=== PATIENT | male | born 1930 | race Caucasian/White ===

== ENCOUNTER 2019-05-17 12:17 | Emergency (ER) | payer MEDICARE, BC ==
--- OUTSIDE RECORDS SUMMARY | 2019-05-17 15:18 | XMS REPORT | Summary of Care ---
:1930 Author Organization [facility] Address [address] [address] Care Team Providers Name Role Phone Coco Hoff MD Primary Care Provider Reason for Visit Reason Comments Cough with phlegm continuing Encounter Details Date Type Department Care Team Description 05/10/2019 Office Visit Viviane Hoff, Pneumonia of left lower lobe due to infectious organism (HCC) (Primary Dx); Practice Coco Ash MD Hx pulmonary embolism; [address] Pulmonary nodules; [place] [address] [place] [address] Cough; [phone] ASHD Allergies No Known Allergiesdocumented as of this encounter (statuses as of 05/10/2019) Medications Medication Sig Dispensed Refills Start End Date Status Date Multiple Take 1 Tab by 0 Active Vitamins-Minerals mouth DAILY. (MULTI-DAY PLUS MINERALS) Oral Tab nitroglycerin Place 1 Tab 25 Tab 2 Active (NITROSTAT) 0.4 MG under tongue 8 Sublingual SL Tab EVERY FIVE MINUTES NEEDED for chest pain. sertraline (ZOLOFT) Take 1 Tab by 90 Tab 3 Active 50 MG Oral mouth DAILY. 8 TabIndications: Grief reaction with prolonged bereavement amLodipine (NORVASC) Take 1 Tab by 90 Tab 3 Active 2.5 MG Oral mouth DAILY. 9 TabIndications: Essential hypertension apixaban (ELIQUIS) 5 Take 1 Tab by 180 Tab 3 Active MG Oral mouth TWICE 9 TabIndications: Other DAILY. acute pulmonary embolism without acute cor pulmonale (HCC) atorvastatin Take 1 Tab by 90 Tab 3 Active (LIPITOR) 40 MG Oral mouth DAILY. 9 TabIndications: ASHD (arteriosclerotic heart disease), ST elevation myocardial infarction (STEMI), unspecified artery (HCC) Omeprazole delayed take 1 capsule 90 Cap 3 Active rel cap 20 MG Oral by mouth once 9 CAPSULE DELAYED daily RELEASEIndications: Gastroesophageal reflux disease without esophagitis acetaminophen Take 2 Tabs by 60 Tab 0 Active (TYLENOL) 500 MG Oral mouth EVERY SIX 9 TabIndications: Rib HOURS NEEDED pain on left side (rib pain). metaxalone (SKELAXIN) Take 1 Tab by 30 Tab 0 Active 800 MG Oral mouth THREE 9 TabIndications: Spasm TIMES DAILY of back muscles, Rib NEEDED (back pain on left side spasm). Losartan Potassium Take 1 Tab by 90 Tab 1 Active 100 MG Oral Tab mouth DAILY. 9 Stop Valsartan levofloxacin Take 1 Tab by 7 Tab 0 05/17/20 Active (LEVAQUIN) 750 MG mouth DAILY for 9 19 Oral TabIndications: 7 days. Pneumonia of left lower lobe due to infectious organism (HCC) aspirin (ECOTRIN) 81 Take 1 Tab by 100 Tab 3 Active MG Oral Tab mouth DAILY. 9 ECIndications: ASHD Discontinue (arteriosclerotic Brilinta heart disease) ticagrelor (BRILINTA) Take 1 Tab by 60 Tab 11 05/10/20 Discontinued 90 MG Oral Tab mouth TWICE 8 19 DAILY. zolpidem (AMBIEN) 5 take 1 tablet by 30 Tab 0 05/10/20 Discontinued MG Oral mouth at bedtime 8 19 TabIndications: if needed for Insomnia, unspecified insomnia maximum type daily dose of 1 documented as of this encounter (statuses as of 05/10/2019) Active Problems Problem Noted Date Other forms of angina pectoris 10/15/2018 Chronic obstructive pulmonary disease 10/15/2018 Other pulmonary embolism without acute cor pulmonale 10/15/2018 STEMI (ST elevation myocardial infarction) 11/14/2017 Pulmonary nodules 11/13/2017 Hx pulmonary embolism 11/13/2017 Overview: on Eliquis Benign hypertension 06/21/2017 Insomnia 06/21/2017 RBBB 06/24/2016 Other and unspecified hyperlipidemia 08/10/2007 PPD POSITIVE 08/10/2007 Irritable bowel syndrome 08/30/2006 Diverticulosis of colon (without mention of hemorrhage) 08/30/2006 Unspecified essential hypertension 08/30/2006 Depressive disorder, not elsewhere classified 08/30/2006 Pain in thoracic spine 08/30/2006 Lumbago 08/30/2006 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 Green: LEFT INTERNAL MAMMARY ARTERY TO THE LEFT ANTERIOR DESCENDING AND SEQUENTIAL SAPHENOUS VEIN GRAFT TO THE RIGHT CORONARY ARTERY AND CIRCUMFLEX POSTEROLATERAL ASHD 10/02/2001 Overview: Stress echocardiogram 02/17/06 FINAL IMPRESSION: This study shows low probability for exercise-induced ischemia by echocardiogram at an adequate heart rate and high workload. Inguinal hernia without mention of obstruction or gangrene, unilateral or 10/1996 unspecified, (not specified as recurrent) documented as of this encounter (statuses as of 05/10/2019) Resolved Problems Problem Noted Date Resolved Date Alcohol abuse, unspecified 08/10/2007 04/14/2008 documented as of this encounter (statuses as of 05/10/2019) Immunizations Name Administration Dates Next Due Depo Medrol (40mg) 06/05/2008 Influenza (IM) Preservative Free 08/05/2011, 08/06/2010, 08/13/2009, 07/07/2008 Influenza Vaccine High Dose 07/03/2018, 06/21/2017, 06/29/2016, 08/04/2015, 07/18/2014 Influenza Virus Vaccine - Whole 08/09/2007, 07/25/2006 Influenza Virus Vaccine Pres Free 6-35 07/09/2012 Months PNEUMOCOCCAL POLYSACCHARIDE VACCINE 07/25/2006 Pneumococcal Conjugate(13 Valent) 06/29/2016 documented as of this encounter Social History Tobacco Use Types Packs/Day Years Used Date Former Smoker Cigarettes 0.25 15 Smokeless Tobacco: Never Used Alcohol Use Drinks/Week oz/Week Comments Yes 7 Glasses of wine 28.0 not since 12/07; resumed wine 14 Standard drinks or equivalent nightly with dinner and a night 7 Shots of liquor cap Sex Assigned at Date Recorded Not on file Job Start Date Occupation Industry Not on file Not on file Not on file Travel History Travel Start Travel End No recent travel history available. documented as of this encounter Last Filed Vital Signs Vital Sign Reading Time Taken Comments Blood Pressure 130/70 05/10/2019 10:35 AM EDT Pulse 78 05/10/2019 10:35 AM EDT Temperature 37.4 05/10/2019 10:35 AM EDT C (99.4 F) Respiratory Rate - - Oxygen Saturation 99% 05/10/2019 10:35 AM EDT Inhaled Oxygen Concentration - - Weight 80.3 kg (177 lb) 05/10/2019 10:35 AM EDT Height 175.3 cm (5' 9") 05/10/2019 10:35 AM EDT Body Mass Index 26.14 05/10/2019 10:35 AM EDT documented in this encounter Patient Instructions Patient InstructionsCoco Hoff MD - 05/10/2019 10:20 AM EDTToday I hear a pneumonia of your left lower lobe of your lung. Your chest xray shows your scarred Left lung mass. I am awaiting the radiologist's reading. Stare levofloxacin 750 mg daily: If better after 5 days you can stop, if not complete 7 days. Per cardiology notes, you can stop Brilinta and switch to aspirin. Avoid falls/head injury with the combination of aspirin and Eliquis Levofloxacin (By mouth) Levofloxacin (met-bqw-JYQY-a-aiden) Treats infections. This medicine is a quinolone antibiotic. Brand Name(s):Levmarilynuin, Levaquin Leva-ethan There may be other brand names for this medicine. When This Medicine Should Not Be Used: This medicine is not right for everyone. Do not use if you had an allergic reaction to levofloxacin or similar medicines. How to Use This Medicine: Liquid, Tablet Your doctor will tell you how much medicine to use. Do not use more than directed. Take your medicine at the same time each day. Tablet: Take the tablet with or without food. Liquid: Take the liquid medicine 1 hour before or 2 hours after you eat. Measure the oral liquid medicine with a marked measuring spoon, oral syringe, or medicine cup. Take all of the medicine in your prescription to clear up your infection, even if you feel better after the first few doses. Drink extra fluids so you will urinate more often and help prevent kidney problems. This medicine should come with a Medication Guide. Ask your pharmacist for a copy if you do nothave one. Missed dose: Take a dose as soon as you remember. If it is almost time for your next dose, waituntil then and take a regular dose. Do not take extra medicine to make up for a missed dose. Store the medicine in a closed container at room temperature, away from heat, moisture, and direct light. Drugs and Foods to Avoid: Ask your doctor or pharmacist before using any other medicine, including over- the-counter medicines,vitamins, and herbal products. Some medicines and foods can affect how levofloxacin works. Tell your doctor if you are using any of the following: Theophylline Steroid medicine (such as hydrocortisone, methylprednisolone, prednisone) Blood thinner (such as warfarin) Diabetes medicine NSAID pain or arthritis medicine (such as aspirin, diclofenac, ibuprofen, naproxen, celecoxib) Medicine for heart rhythm problems (such as quinidine, procainamide, amiodarone, sotalol) Some minerals and medicines can keep your body from absorbing this medicine. You may need to take levofloxacin at least 2 hours before or after you take these medicines. These include antacids that contain magnesium or aluminum; magnesium, zinc, or iron supplements; sucralfate; and didanosine. Ask your pharmacist for more information. Warnings While Using This Medicine: Tell your doctor if you are or , or if you have kidney disease, liver disease, diabetes, heart disease, heart rhythm problems ( such as QT prolongation or a slow heartbeat), myasthenia gravis, or a history of seizures, epilepsy, head injury, or stroke. Tell your doctor if youhave ever had tendon or joint problems, including rheumatoid arthritis, or if you have received a transplant. This medicine may cause the following problems: Tendinitis and tendon rupture (may happen after treatment ends) Liver damage Severe diarrhea Nerve damage in the arms or legs Heart rhythm changes Blood sugar level changes This medicine may make you feel dizzy or lightheaded. Do not drive or do anything else that could be dangerous until you know how this medicine affects you. This medicine can cause diarrhea. Call your doctor if the diarrhea becomes severe, does not stop, or is bloody. Do not take any medicine to stop diarrhea until you have talked to your doctor. Diarrhea can occur 2 months or more after you stop taking this medicine. This medicine may make your skin more sensitive to sunlight. Wear sunscreen. Do not use sunlamps or tanning beds. Call your doctor if your symptoms do not improve or if they get worse. Tell any doctor or dentist who treats you that you are using this medicine. This medicine may affect certain medical test results. Keep all medicine out of the reach of children. Never share your medicine with anyone. Possible Side Effects While Using This Medicine: Call your doctor right away if you notice any of these side effects: Allergic reaction: Itching or hives, swelling in your face or hands, swelling or tingling in your mouth or throat, chest tightness, trouble breathing Blistering, peeling, or red skin rash Change in how much or how often you urinate Dark urine or pale stools, nausea, vomiting, loss of appetite, stomach pain , yellow skin or eyes Diarrhea that may contain blood Fainting, dizziness, or lightheadedness Fast, slow, or uneven heartbeat, chest pain Numbness, tingling, or burning pain in your hands, arms, legs, or feet Pain, stiffness, swelling, or bruises around your ankle, leg, shoulder, or other joint Seizures, severe headache, unusual thoughts or behaviors, trouble sleeping , confusion Unusual bleeding, bruising, or weakness If you notice these less serious side effects, talk with your doctor: Mild headache Mild nausea or diarrhea If you notice other side effects that you think are caused by this medicine, tell your doctor. Call your doctor for medical advice about side effects. You may report side effects to FDA at 1-487-MLZ-3250 2016 [employer]. Information is for End User's use only and may not be sold, redistributed or otherwise used for commercial purposes. The above information is an laboratory aide only. It is not intended as medical advice for individual conditions or treatments. Talk to your doctor, nurse or pharmacist before following any medical regimen to see if it is safe and effective for you. Pneumonia SPEECH PATHOLOGY TEACHER: Pneumonia is an infection in your lungs caused by bacteria, viruses, or fungus. You can become infected if you come in contact with someone who is sick. You can get pneumonia if you recently had surgery or needed a ventilator to help you breathe. Pneumonia can also be caused by accidentally inhaling saliva or small pieces of food. Pneumonia may cause mild symptoms, or it can be severe and life-threatening. Common symptoms include the following: Fever or chills Cough Shortness of breath or rapid breathing Chest pain when you cough or breathe deeply Headache Vomiting Fatigue or confusion Seek care immediately if: You cough up blood. Your heart beats more than 100 beats in 1 minute. You are very tired, confused, and cannot think clearly. You have chest pain or trouble breathing. Your lips or fingernails turn salcedo or blue. Contact your healthcare provider if: Your symptoms do not get better or get worse. You have a fever higher than 101F (38.3C). You cannot eat or have loss of appetite, nausea, or vomiting. You have questions or concerns about your condition or care. Treatment for pneumonia will depend on how severe it is. Medicine may be given to treat an infection. You may also need acetaminophen to decrease pain or fever. Ask how much to take and how often to take it. Acetaminophen can cause liver damage if not taken correctly. You may also need to do exercises to help remove mucous and make breathing easier. You may also need a device or machine to decrease your symptoms or help you breathe. Manage your symptoms: Rest as needed. Rest often throughout the day. Alternate times of activity with times of rest. Drink liquids as directed. Ask how much liquid to drink each day and which liquids are best for you. Liquids help thin your mucus, which may make it easier for you to cough it up. Do not smoke. Smoking increases your risk for pneumonia. Smoking also makes it harder for you to get better after you have had pneumonia. Ask your healthcare provider for information if you need help to quit smoking. Prevent pneumonia: Avoid the spread of germs. Wash your hands often with soap and water. Use gel hand cleanser when there is no soap and water available. Do not touch your eyes, nose, or mouth unless you have washed your hands first. Cover your mouth when you cough. Cough into a tissue or your shirtsleeve so you do not spread germs from your hands. If you are sick, stay away from others as much as possible. Ask about vaccines. You may need a vaccine to help prevent pneumonia. Get an influenza (flu) vaccine every year as soon as it becomes available. Follow up with your healthcare provider as directed: Write down your questions so you remember to ask them during your visits. 2016 [employer]. Information is for End User's use only and may not be sold, redistributed or otherwise used for commercial purposes. All illustrations and images included in CareNotes are the copyrighted property of [employer]. or [employer]. The above information is an laboratory aide only. It is not intended as medical advice for individual conditions or treatments. Talk to your doctor, nurse or pharmacist before following any medical regimen to see if it is safe and effective for you. documented in this encounter Progress Notes Coco Hoff MD - 05/10/2019 10:20 AM EDT Nursing Notes: Milagros Cuba LPN 05/10/2019 10:56 AM Signed Chief Complaint Patient presents with Cough with phlegm continuing Trout Farmer: Dr Ramos Comic Book Artist: Geovanni Cabezas MD Radiation oncologist: Dr Mejia Chief Complaint: Usman Shore is a 88-y.o. male who presents for persistent cough, with sputum History of Present Illness/ROS: Patient has persistent left lower lateral chest pain and more persistent and worse cough, postnasal drip, has not seen the sputum No fevers or chills Worse lying down No GASTON I saw him 05/01/19 and at that visit he primarily had Left lower chest wall pain , denied cough at that time. Since he has developed a wet sounding cough, but cannot bring up the sputum. It is worse lying down. He is worried he is developing pneumonia. He is still on Brilinta and Eliquis Per last cardiology note 03/2018 he was to stop Brilinta a year after his myocardial infarction. His cardilogy appointment were canceled since. He sees Geovanni Cabezas for cardiology follow up. He is now off Brilinta until 11/2018, s/p PCI tohis vein graft 11/2017 until 11/2018. No med changes made. He is s/p PCI/BMS to the SVG to circumflex and OM branch, bare metal stent placed 11/13/17. He plans an echocardiogram in [address] Ramos for lung nodule and pulmonary embolism. He continued his anticoagulation. Plan was another [address] for his pulmonary nodule and on repeatthe max diameter was 22 mm. Given this the risk of malignancy was higher. He recommended radiationtherapy. Prior he had had a PET scan and this was discussed at Pulmonary oncology conference. The consensuswas that it would be most reasonable to continue to observe these lesions with short-term follow-up.Therefore, we will arrange for an office visit and a follow-up chest CT scan on the same day in mid January. This will be 3 months after the prior CT scan. CT CHEST WITHOUT IV CONTRAST Narrative: Procedure(s): CT CHEST WITHOUT IV CONTRAST Date of service: 04/09/2019 2:16 PM Provided clinical information: 88 years, Male, "f/u post SBRT" Procedure and materials: Standard protocol. Contrast: None. Comparison studies: 11/21/2018, 05/18/2018. Observations: Axillary regions and chest wall are unremarkable. Thoracic inlet is unremarkable. Patient is status post sternotomy. No mediastinal or hilar adenopathy. Patient has received stereotactic radiation to left upper lobe lingular PET positive part solid lesion. There are increased opacities in the lingula including some groundglass opacity and linear structures. There is a quality nodular part solid lesion more posterior to the original lesion where there was no precursor present. A small area of scarred rounded atelectasis is noted at the left lung base laterally, stable. Some stable scarring in the right middle lobe is also noted. Otherwise no new active disease. Airways are patent. Spine is unremarkable. Visualized portions of the upper abdomen suggest the presence of stones in the gallbladder. Impression: Status post stereotactic radiation to PET positive growing lingular lesion. Current study shows increased groundglass opacity and linear opacities in the lingula surrounding the lesion and extending out into the adjacent lung. These are assumed to be related to the radiation therapy. No distant active disease. Urgency: Routine. This is a routine medical imaging report. Recommendation: No specific imaging recommendation. Signed by David Farah MD on 04/11/2019 8:[address] 02/16/18: IMPRESSION: The soft tissue component of the nodule within the left upper lobe has increased. The spiculation has decreased as compared back to prior examination. Multiple other pulmonary nodules are present these are predominantly stable. There are tree-in-bud formation that is present concerning for an underlying subclinical infectious process. Small nodular density in the lateral aspect of the left lower lobe this appears to have slightly increased as compared back to the prior examination. This previously measured approximately 10 mm in AP dimension where it now measures 1.5 cm. This is measured on lung windows. CAD: Had STEMI, peak Troponin of 6.58.; and pulmonary embolism 11/13/2017 Procedures: Left heart catheterization PCI/BMS to the SVG to circumflex and OM branch, bare metal stent placed Pulmonary nodule, hypertension, hx positive ppd. Left Heart Cath 11/13/17: IMPRESSION: 1. [place] left main and triple-vessel coronary artery disease. 2. Widely patent left internal mammary artery to the left anterior descending coronary artery. 3. Severe disease in the saphenous vein graft supplying the circumflex obtuse marginal branch. The portion of this graft distally, which previously supplied the right posterolateral branch, appears to be chronically occluded. 4. Successful percutaneous coronary intervention to the portion of the saphenous vein graft supplying the circumflex obtuse marginal branch. 5. The patient has had a bare metal stent placed due to concern about his lung nodule being cancer and needing further workup in the short term. Review of Systems - General ROS: negative for - chills or fever, unexpected weight changes ENT ROS: negative for - headaches, nasal congestion, visual changes; positive for postnasal drip Respiratory ROS: negative for - hemoptysis or shortness of breath; positive for cough and sputum Cardiovascular ROS: negative for - dyspnea on exertion, edema or palpitations, cardiac chest pain. He still has mild pain left lateral chest wall. Gastrointestinal ROS: no abdominal pain, change in bowel habits, or black or bloody stools Genito-Urinary ROS: no dysuria, trouble voiding, or hematuria Past Medical History: Diagnosis Date Alcohol abuse, unspecified 08/10/2007 Cancer (HCC) 04/11/2016 squamous cell skin cancer arms bilaterally; left 3rd finger, right wrist Cardiac rhythm disorder or disturbance or change RBBB, bradycardia Coronary artery disease CABG 2000 or so Coronary atherosclerosis of unspecified type of vessel, [place] or graft Depressive disorder, not elsewhere classified 08/30/2006 Diverticulosis of colon (without mention of hemorrhage) 08/30/2006 Heart attack (HCC) 11/13/2017 STEMI, peak Troponin of 6.58.; and pulmonary embolism. History of Holter monitoring 07/03/2016 Baseline rhythm is sinus bradycardia with a first-degree AV block. frequent PVC Hx of CABG Hx pulmonary embolism 11/13/2017 on Eliquis Inguinal hernia without mention of obstruction or gangrene, unilateral or unspecified, (not specified as recurrent) 10/02/1996 Irritable bowel syndrome 08/30/2006 Lumbago 08/30/2006 Other and unspecified hyperlipidemia 08/10/2007 Pain in thoracic spine 08/30/2006 PPD POSITIVE 08/10/2007 RBBB 06/24/2016 Unspecified essential hypertension 08/30/2006 Past Surgical History: Procedure Laterality Date ANGIOPLASTY STENT CORONARY VIA GROIN N/A 11/13/2017 Procedure: ANGIOPLASTY STENT CORONARY; Surgeon: Casa Grossman MD; Location: [facility] CATHETERIZATION HEART LEFT 02/01/2011 Procedure:CATHETERIZATION HEART LEFT; Surgeon:TOMAS DRAPER; Location:[facility] ; Laterality:N/A; CORONARY ART/FEMORAL ART & ANGIOSEAL CORONARY ARTERY BYPASS, VEIN O 01/02/2002 Dr. Green: TIMES THREE WITH LEFT INTERNAL MAMMARY ARTERY TO THE LEFT ANTERIOR DESCENDING AND SEQUENTIAL SAPHENOUS VEIN GRAFT TO THE RIGHT CORONARY ARTERY AND CIRCUMFLEX POSTEROLATERAL LEFT HEART CARDIAC CATH 11/13/2017 PCI/BMS to the SVG to circumflex and OM branch, bare metal stent placed LEFT HEART CATH,RETRORADE,FRO 01/01/2002 Dr. Rogel: Significant triple-vessel coronary artery disease with in-stent and proximal left anterior descending stenosis. LEFT HEART CATH,RETROGGRADE,FRO 09/18/2001 Dr. Rogel: 3.0 x 18 mm Velocity stent proximal LAD Current Outpatient Medications: acetaminophen (TYLENOL) 500 MG Oral Tab, Take 2 Tabs by mouth EVERY SIX HOURS NEEDED (ribpain)., Disp: 60 Tab, Rfl: 0 amLodipine (NORVASC) 2.5 MG Oral Tab, Take 1 Tab by mouth DAILY., Disp: 90 Tab, Rfl: 3 apixaban (ELIQUIS) 5 MG Oral Tab, Take 1 Tab by mouth TWICE DAILY., Disp : 180 Tab, Rfl: 3 aspirin (ECOTRIN) 81 MG Oral Tab EC, Take 1 Tab by mouth DAILY. Discontinue Brilinta, Disp: 100 Tab, Rfl: 3 atorvastatin (LIPITOR) 40 MG Oral Tab, Take 1 Tab by mouth DAILY., Disp : 90 Tab, Rfl: 3 levofloxacin (LEVAQUIN) 750 MG Oral Tab, Take 1 Tab by mouth DAILY for 7 days., Disp: 7 Tab,Rfl: 0 Losartan Potassium 100 MG Oral Tab, Take 1 Tab by mouth DAILY. Stop Valsartan, Disp: 90 Tab,Rfl: 1 metaxalone (SKELAXIN) 800 MG Oral Tab, Take 1 Tab by mouth THREE TIMES DAILY NEEDED (backspasm)., Disp: 30 Tab, Rfl: 0 Multiple Vitamins-Minerals (MULTI-DAY PLUS MINERALS) Oral Tab, Take 1 Tab by mouth DAILY., Disp: , Rfl: nitroglycerin (NITROSTAT) 0.4 MG Sublingual SL Tab, Place 1 Tab under tongue EVERY FIVE MINUTES NEEDED for chest pain., Disp: 25 Tab, Rfl: 2 Omeprazole delayed rel cap 20 MG Oral CAPSULE DELAYED RELEASE, take 1 capsule by mouth once daily, Disp: 90 Cap, Rfl: 3 sertraline (ZOLOFT) 50 MG Oral Tab, Take 1 Tab by mouth DAILY., Disp: 90 Tab, Rfl: 3 No Known Allergies Social History Socioeconomic History Marital status: Spouse name: Not on file Number of children: Not on file Years of education: Not on file Highest education level: Not on file Occupational History Not on file Social Needs Financial resource strain: Not on file Food insecurity: Worry: Not on file Inability: Not on file Transportation needs: Medical: Not on file Non-medical: Not on file Tobacco Use Smoking status: Former Smoker Packs/day: 0.25 Years: 15.00 Pack years: 3.75 Types: Cigarettes Smokeless tobacco: Never Used Substance and Sexual Activity Alcohol use: Yes Alcohol/week: 28.0 standard drinks Types: 7 Glasses of wine, 14 Standard drinks or equivalent, 7 Shots of liquor per week Comment: not since 12/07; resumed wine nightly with dinner and a night cap Drug use: No Sexual activity: Not Currently Partners: Female Lifestyle Physical activity: Days per week: Not on file Minutes per session: Not on file Stress: Not on file Relationships Social connections: Talks on phone: Not on file Gets together: Not on file Attends yazidism service: Not on file Active member of club or organization: Not on file Attends meetings of clubs or organizations: Not on file Relationship status: Not on file Intimate partner violence: Fear of current or ex partner: Not on file Emotionally abused: Not on file Physically abused: Not on file Forced sexual activity: Not on file Other Topics Concern Back Care Not Asked Bike Helmet Not Asked Blood Transfusions No Caffeine Concern Not Asked Exercise Yes Comment: swimming few times/week gym ~2 x/week Hobby Hazards Not Asked International Travel Not Asked Service Not Asked Occupational Exposure Not Asked Seat Belt Not Asked Self-Exams Not Asked Sleep Concern Not Asked Special Diet Not Asked Stress Concern Not Asked Weight Concern Not Asked Social History Narrative 03/2016 3 children. 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 Pets: none Raised by guardians, FH unknown Family History Adopted: Yes Problem Relation Age of Onset No Known Problems Son No Known Problems Son PHYSICAL EXAMINATION: BP 130/70 (BP Location: Right arm, Patient Position: Sitting) | Pulse 78 | Temp 99.4 F (37.4 C) (Tympanic) | Ht 5' 9" (1.753 m) | Wt 177 lb ( 80.3 kg) | SpO2 99% | BMI 26.14 kg/m Physical Examination: General appearance - alert, well appearing, and in no distress Mental status - alert, oriented to person, place, and time, normal mood, behavior, speech, dress, motor activity, and thought processes Eyes - pupils equal, sclera anicteric Ears - bilateral TM's and external ear canals normal Throat: No erythema Neck - supple, no cervical or supraclavicular adenopathy, carotids upstroke normal bilaterally, no bruits, thyroid exam: thyroid is normal in size without nodules or tenderness, no neck masses palpated. Chest/Lungs - good aeration, left lower lobe crackles noted, no rhonchi, symmetric air entry, no wheezing Heart - normal rate, regular rhythm Abdomen - soft, non tender on palpation, nondistended, no masses or hepatosplenomegaly, bowel soundsnormal, normal to percussion, no guarding or rebound. No costervertebral angle tenderness Neurological - alert, oriented, normal speech, no gross focal findings or movement disorder noted Extremities - dorsalis pedis pulses normal, no pedal edema, no clubbing or cyanosis ASSESSMENT/PLAN: ICD-9-CM ICD-10-CM 1. Pneumonia of left lower lobe due to infectious organism ([facility]) 486 J18.1 levofloxacin (LEVAQUIN) 750 MG Oral Tab 2. Hx pulmonary embolism V12.55 Z86.711 XR CHEST 2 VIEW PA AND LATERAL (STANDARD ) 3. Pulmonary nodules 793.19 R91.8 XR CHEST 2 VIEW PA AND LATERAL (STANDARD) 4. Cough 786.2 R05 XR CHEST 2 VIEW PA AND LATERAL (STANDARD) 5. ASHD 414.00 I25.10 aspirin (ECOTRIN) 81 MG Oral Tab EC I viewed his chest xray and he has a left middle lung field mass, may have an infiltrate along left lower heart border. Start levofloxacin. Follow up 1.5 weeks, sooner prn Patient Instructions Today I hear a pneumonia of your left lower lobe of your lung. Your chest xray shows your scarred Left lung mass. I am awaiting the radiologist's reading. Stare levofloxacin 750 mg daily: If better after 5 days you can stop, if not complete 7 days. Per cardiology notes, you can stop Brilinta and switch to aspirin. Avoid falls/head injury with the combination of aspirin and Eliquis Levofloxacin (By mouth) Levofloxacin ([id number]-GBLR-a-sin) Treats infections. This medicine is a quinolone antibiotic. Brand Name(s):Levaquin, Levaquin Leva-ethan There may be other brand names for this medicine. When This Medicine Should Not Be Used: This medicine is not right for everyone. Do not use if you had an allergic reaction to levofloxacin or similar medicines. How to Use This Medicine: Liquid, Tablet Your doctor will tell you how much medicine to use. Do not use more than directed. Take your medicine at the same time each day. Tablet: Take the tablet with or without food. Liquid: Take the liquid medicine 1 hour before or 2 hours after you eat. Measure the oral liquid medicine with a marked measuring spoon, oral syringe, or medicine cup. Take all of the medicine in your prescription to clear up your infection, even if you feel better after the first few doses. Drink extra fluids so you will urinate more often and help prevent kidney problems. This medicine should come with a Medication Guide. Ask your pharmacist for a copy if you do nothave one. Missed dose: Take a dose as soon as you remember. If it is almost time for your next dose, waituntil then and take a regular dose. Do not take extra medicine to make up for a missed dose. Store the medicine in a closed container at room temperature, away from heat, moisture, and direct light. Drugs and Foods to Avoid: Ask your doctor or pharmacist before using any other medicine, including over- the-counter medicines,vitamins, and herbal products. Some medicines and foods can affect how levofloxacin works. Tell your doctor if you are using any of the following: Theophylline Steroid medicine (such as hydrocortisone, methylprednisolone, prednisone) Blood thinner (such as warfarin) Diabetes medicine NSAID pain or arthritis medicine (such as aspirin, diclofenac, ibuprofen, naproxen, celecoxib) Medicine for heart rhythm problems (such as quinidine, procainamide, amiodarone, sotalol) Some minerals and medicines can keep your body from absorbing this medicine. You may need to take levofloxacin at least 2 hours before or after you take these medicines. These include antacids that contain magnesium or aluminum; magnesium, zinc, or iron supplements; sucralfate; and didanosine. Ask your pharmacist for more information. Warnings While Using This Medicine: Tell your doctor if you are or , or if you have kidney disease, liver disease, diabetes, heart disease, heart rhythm problems ( such as QT prolongation or a slow heartbeat), myasthenia gravis, or a history of seizures, epilepsy, head injury, or stroke. Tell your doctor if youhave ever had tendon or joint problems, including rheumatoid arthritis, or if you have received a transplant. This medicine may cause the following problems: Tendinitis and tendon rupture (may happen after treatment ends) Liver damage Severe diarrhea Nerve damage in the arms or legs Heart rhythm changes Blood sugar level changes This medicine may make you feel dizzy or lightheaded. Do not drive or do anything else that could be dangerous until you know how this medicine affects you. This medicine can cause diarrhea. Call your doctor if the diarrhea becomes severe, does not stop, or is bloody. Do not take any medicine to stop diarrhea until you have talked to your doctor. Diarrhea can occur 2 months or more after you stop taking this medicine. This medicine may make your skin more sensitive to sunlight. Wear sunscreen. Do not use sunlamps or tanning beds. Call your doctor if your symptoms do not improve or if they get worse. Tell any doctor or dentist who treats you that you are using this medicine. This medicine may affect certain medical test results. Keep all medicine out of the reach of children. Never share your medicine with anyone. Possible Side Effects While Using This Medicine: Call your doctor right away if you notice any of these side effects: Allergic reaction: Itching or hives, swelling in your face or hands, swelling or tingling in your mouth or throat, chest tightness, trouble breathing Blistering, peeling, or red skin rash Change in how much or how often you urinate Dark urine or pale stools, nausea, vomiting, loss of appetite, stomach pain , yellow skin or eyes Diarrhea that may contain blood Fainting, dizziness, or lightheadedness Fast, slow, or uneven heartbeat, chest pain Numbness, tingling, or burning pain in your hands, arms, legs, or feet Pain, stiffness, swelling, or bruises around your ankle, leg, shoulder, or other joint Seizures, severe headache, unusual thoughts or behaviors, trouble sleeping , confusion Unusual bleeding, bruising, or weakness If you notice these less serious side effects, talk with your doctor: Mild headache Mild nausea or diarrhea If you notice other side effects that you think are caused by this medicine, tell your doctor. Call your doctor for medical advice about side effects. You may report side effects to FDA at 5-890-VKU-9626 2016 [employer]. Information is for End User's use only and may not be sold, redistributed or otherwise used for commercial purposes. The above information is an laboratory aide only. It is not intended as medical advice for individual conditions or treatments. Talk to your doctor, nurse or pharmacist before following any medical regimen to see if it is safe and effective for you. Pneumonia SPEECH PATHOLOGY TEACHER: Pneumonia is an infection in your lungs caused by bacteria, viruses, or fungus. You can become infected if you come in contact with someone who is sick. You can get pneumonia if you recently had surgery or needed a ventilator to help you breathe. Pneumonia can also be caused by accidentally inhaling saliva or small pieces of food. Pneumonia may cause mild symptoms, or it can be severe and life-threatening. Common symptoms include the following: Fever or chills Cough Shortness of breath or rapid breathing Chest pain when you cough or breathe deeply Headache Vomiting Fatigue or confusion Seek care immediately if: You cough up blood. Your heart beats more than 100 beats in 1 minute. You are very tired, confused, and cannot think clearly. You have chest pain or trouble breathing. Your lips or fingernails turn salcedo or blue. Contact your healthcare provider if: Your symptoms do not get better or get worse. You have a fever higher than 101F (38.3C). You cannot eat or have loss of appetite, nausea, or vomiting. You have questions or concerns about your condition or care. Treatment for pneumonia will depend on how severe it is. Medicine may be given to treat an infection. You may also need acetaminophen to decrease pain or fever. Ask how much to take and how often to take it. Acetaminophen can cause liver damage if not taken correctly. You may also need to do exercises to help remove mucous and make breathing easier. You may also need a device or machine to decrease your symptoms or help you breathe. Manage your symptoms: Rest as needed. Rest often throughout the day. Alternate times of activity with times of rest. Drink liquids as directed. Ask how much liquid to drink each day and which liquids are best for you. Liquids help thin your mucus, which may make it easier for you to cough it up. Do not smoke. Smoking increases your risk for pneumonia. Smoking also makes it harder for you to get better after you have had pneumonia. Ask your healthcare provider for information if you need help to quit smoking. Prevent pneumonia: Avoid the spread of germs. Wash your hands often with soap and water. Use gel hand cleanser when there is no soap and water available. Do not touch your eyes, nose, or mouth unless you have washed your hands first. Cover your mouth when you cough. Cough into a tissue or your shirtsleeve so you do not spread germs from your hands. If you are sick, stay away from others as much as possible. Ask about vaccines. You may need a vaccine to help prevent pneumonia. Get an influenza (flu) vaccine every year as soon as it becomes available. Follow up with your healthcare provider as directed: Write down your questions so you remember to ask them during your visits. 2016 [employer]. Information is for End User's use only and may not be sold, redistributed or otherwise used for commercial purposes. All illustrations and images included in CareNotes are the copyrighted property of [employer] or [employer]. The above information is an laboratory aide only. It is not intended as medical advice for individual conditions or treatments. Talk to your doctor, nurse or pharmacist before following any medical regimen to see if it is safe and effective for you. Author: Coco Hoff MD 05/10/2019 13:57 documented in this encounter Plan of Treatment Date Type Specialty Care Team Description 05/22/2019 Office Visit Family Practice Coco Hoff MD [address] [place] [address] [phone] 05/31/2019 Appointment Pulmonary 05/31/2019 Office Visit Pulmonary Juan C Ramos MD [address] [address] [phone] 10/15/2019 Ancillary Procedure Radiology 10/18/2019 Office Visit Radiation Radiation Oncology Jason Mejia MD Oncology [address] [id number] Name Type Priority Associated Diagnoses Date/Time XR CHEST 2 VIEW PA Imaging Routine Hx pulmonary embolism 05/10/2019 10:17 AM EDT AND LATERAL Pulmonary nodules (STANDARD) Cough Name Type Priority Associated Diagnoses Order Schedule XR CHEST 2 VIEW PA AND Imaging Routine Hx pulmonary embolism Expected: 05/09/2019, LATERAL (STANDARD) Pulmonary nodules Expires: 05/08/2020 Cough Health Maintenance Due Date Last Done Comments MEDICARE ANNUAL WELLNESS 1930 VISIT ZOSTER IMMUNIZATION SERIES 1979 (1 of 2) INFLUENZA VACCINE (#1) 2019 07/03/2018, 06/21/2017, 06/29/2016, Additional history exists DEPRESSION SCREENING 01/19/2020 01/18/2019 FALL RISK ASSESSMENT 05/10/2020 05/10/2019, 05/10/2019 PNEUMOCOCCAL 65+YRS Completed 06/29/2016, 07/25/2006 HPV IMMUNIZATION SERIES Aged Out No longer eligible based on patient's age to complete this topic MENINGOCOCCAL VACCINE IMM Aged Out No longer eligible based on patient's age to complete this topic documented as of this encounter Goals Goal Patient Goal Associated Recent Patient-Stated? Author Type Problems Progress Blood Pressure Blood Pressure Unspecified 130/70 No Mike, < 140/90 essential (05/10/2019 Iban, hypertension 10:35 AM EDT) Note: Hypertension Care Plan Based on the patient's clinical history and according to JNC 8 guidelines target blood pressure goal is . Based on the patient's last blood pressure of BP : 132/78 mmHg the patient is at at goal. As your provider, it is important that I advise you regarding: your current medications and help you with any challenges you may face taking your medications as directed (ex. instructions, cost, side effects, and interactions). Important lifestyle changes: remain active your clinical goals and how you can achieve success: weight reduction medication management: adjusted medications as appropriate patient education/self-management tools provided: Current self-management tools adequate To successfully manage my Hypertension I will: monitor my blood pressure daily, understanding that my goal is less than 140/ 90 per my healthcare provider's recommendation. I will schedule an appointment with my provider if consistent abnormal readings greater than 160/100. take medications every day as prescribed by my healthcare provider and if unable to take them I will discuss with my provider. monitor for symptoms of chest pain, chest tightness/pressure, irregular heartbeat, persistent dizziness, radiating arm pain, and neck or jaw pain. If any of these symptoms are noticed I will seek medical attention immediately by calling 911 exercise/walk 15 minutes 3 day(s) per week. If I experience chest pain, chest tightness, or shortness of breath, I will seek medical attention immediately. follow a diet rich in fruits, vegetables, and low-fat dairy products with reduced content of saturated & total fat. I will reduce my sodium intake daily. An example is the DASH diet. To obtain more information please refer to the DASH Eating Plan listed in Educational Resources. record my blood pressure results. [employer] is safe and secure way for you to do this in your medical record online. try to obtain an ideal body weight. My recent weight was Weight: 191 lb 8 oz (86.864 kg). My weight loss goal for my next office visit is 182#. limit alcohol consumption. For men two drinks per day and women one drink per day. if currently smoking, will discuss how to quit smoking with my healthcare provider and work towards quitting. Educational Resources: National Heart, Lung, & Blood [place] http://nhlbi.nih.gov/hbp/index.html The DASH Diet Eating Plan http://www.nhlbi.nih.gov/health/health-topics/ topics/dash/ Academy of Nutrition & DIetetics http://eatright.org National Smoking Cessation Site http://smokefree.gov Blood Pressure < Blood Pressure 130/70 (05/10/2019 Coco Bianchi 150/90 10:35 AM EDTMeena Ash MD Note: This is an individualized treatment (blood pressure) goal for Usman Gonzalez: Displayed above (on the left) is your goal for blood pressure control. Your most recent blood pressure is also shown above, on the right. You should try to achieve blood pressures that are lower than your goal listed above (on the left). Depression screen (PHQ-9) total score < Depression No Coco Hoff MD 5 Note: This is an individualized treatment (depression) goal for Usman Shore: Displayed above is your goal for a depression screening (PHQ-9) score that would indicate good control of your depression. Keep a regular sleep schedule Lifestyle No Coco Hoff MD Note: This is an individualized lifestyle goal for Usman Shore: Please maintain a regular sleep schedule. This may help with some symptoms of depression. Keep immunizations current Lifestyle Coco Bianchi MD Note: This is an individualized lifestyle goal for Usman Shore: Please be sure to keep up-to-date on recommended immunizations. For example, this would include a yearly influenza vaccine. Immunization status can be seen by looking at the Health Maintenance sections of your e[employer], Plan of Care, and any After Visit Summaries. Take all prescribed medications as Self-management No Coco Hoff MD directed Note: This is an individualized self-management goal for Usman Shore: Please take all prescribed medications as directed. 1. Do not skip doses. If you cannot afford your medications, talk with your doctor. 2. Use a pill reminder system such as a pill box if needed. Your pharmacist can help you with this. 3. Contact your Pharmacy 5 days before your medication runs out. If you cannot take your medications for any reasons, talk with your doctor. 4. Please bring all of your medication bottles and inhalers (or a list of all your medications/inhalers) with you to every visit. Potential barriers to meeting all of your care plan goals will continue to be addressed on an ongoing basis. documented as of this encounter Implants Implanted Type Area Poultry Pathologist Device Shelf Model / Serial Identifier Expiration / Lot Date Integrity Stent - [id number] N/A: Vein [employer] 03/15/2019 [id number] / Implanted: Qty: 1 on 11/13/2017 by Casa Grossman MD at [facility] Graft / [id number] documented as of this encounter Results Not on filedocumented in this encounter Visit Diagnoses Diagnosis Pneumonia of left lower lobe due to infectious organism (HCC) - Primary Hx pulmonary embolism Personal history of pulmonary embolism Pulmonary nodules Other nonspecific abnormal finding of lung field Cough ASHD Coronary atherosclerosis of unspecified type of vessel, chemehuevi or graft documented in this encounter Insurance Payer Benefit Plan / Subscriber ID Effective Dates Phone Address Type Group MEDICARE MEDICARE PART xxxxxxxxxxx 1998-[facility] Medicare A & B t [facility]-EMPIRE xxxxxxxxx 2016-[facility] [place] PLAN t [facility] BCBS BCBS xxxxxxxxxxxx 2018-[facility] [employer]( t [employer] PPO) Guarantor Name Account Type Relation to Date of Phone Billing Patient Address Jacqueline Shore Personal/Family 1930 [address] (Home) [place], [place] [phone] (Work) documented as of this encounter
--- OUTSIDE RECORDS SUMMARY | 2019-05-17 15:18 | XMS REPORT | Continuity of Care Document ---
:1930 External Reference #:[id number] Author Name Santo Berumen M.D. Address [address] [place] [address] Care Team Providers Name Role Phone Coco Hoff M.D. Primary Care Physician Unavailable Payers Date Identification Numbers Payment Provider Subscriber Effective: Policy Number: [id number] Medicare - NGS Usman Gonzalez 2003 PayID: [id number] [address] [place] [address] Policy Number: [id number] [place] Plan Usman Gonzalez PayID: [id number] [address] [place] [address] Problems Active Problems Provider Date Conjunctival hemorrhage Santo Berumen M.D. 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 Valsartan Unknown 320mg Tablets Amlodipine Besylate Cannariato, 2.5mg Coco M.D. Tablets Omeprazole Unknown 20mg Capsules DR Moraes Calcium Unknown 40mg Tablets Zolpidem Tartrate take 1 tablet by Unknown 5mg mouth at bedtime Tablets if needed for insomnia maximum daily Nitroglycerin McClintic, 0.4mg Geovanni M.D. Tablets Sub Multi Vitamin Daily Unknown Tablets History Medications Erythromycin Apply To The 1Tube H11.32 Santo Berumen, 03/20/2018 - 5mg/GM Left Eye AT M.D. 04/24/2019 Ointment Night For 2 Weeks Doxycycline Hyclate Albertoariato, - Coco M.D. 04/24/2019 100mg Tablets Medications Administered in Office Medication SIG Qnty Indications Ordering Provider Date Michaelal Ari Mesa 05/28/2003 Injection Procedures Date Code Description Status 03/20/2018 87566 New Patient Comprehensive Exam Completed 06/14/2011 70222 Scanning Computerized Opthalmic Diagnostic Posterior Seg Completed Retina 06/14/2011 48923 Est Patient Comprehensive Exam Completed 11/11/2010 63051 Est Patient Intermediate Exam Completed 05/20/2010 92749 Scanning Laser W/Interp And Report Completed 05/20/2010 48550 Est Patient Comprehensive Exam Completed 04/28/2009 83742 Scanning Laser W/Interp And Report Completed 04/28/2009 25907 Est Patient Comprehensive Exam Completed 04/28/2008 57573 Scanning Laser W/Interp And Report Completed 04/28/2008 99682 Est Patient Intermediate Exam Completed 10/29/2007 79447 Scanning Laser W/Interp And Report Completed 10/29/2007 59811 Est Patient Intermediate Exam Completed 04/09/2007 53155 Est Patient Intermediate Exam Completed 03/07/2006 55997 Fluorescein Angiography Completed 03/02/2006 02348 Determination Of Refractive State Completed 03/02/2006 11011 Est Patient Comprehensive Exam Completed 09/21/2005 74253 Determination Of Refractive State Completed 09/21/2005 24996 Est Patient Comprehensive Exam Completed 11/05/2004 46389 Est Patient Intermediate Exam Completed 09/21/2004 48364 Determination Of Refractive State Completed 09/21/2004 37016 Est Patient Intermediate Exam Completed 06/25/2004 40701 Fluorescein Angiography Completed 06/23/2004 96121 Est Patient Comprehensive Exam Completed 05/28/2003 113 [place] Completed Plan of Treatment 04/25/2019 - Santo Berumen M.D.H53.022 Refractive amblyopia, left eyeComments:Smoking can increase the risk of developing or worsening any eye related disease, as well as affect your overall health. If you are a smoker, we strongly recommend that you quit.If you are not a smoker, we strongly recommend that you do not start. You have Amblyopia in your left eye. You have never been able to see perfectly out of this eye.Follow up:1 Year Follow Up dfe You can expect to have your eyes dilated at your next visit. If Dr. Berumen orders any additional testing, it may require extra time. We recommend that you bring sunglasses, as dilation drops often make you light sensitive until they wear off. We always recommend you bring someone to drive you home if you are uncomfortable driving with your eyes dilated. If you have any questions before your next visit, feel free to call our office at .A62.627 Vitreous degeneration, bilateralComments:You have a Posterior Vitreous Detachment. If you have any changes in your floaters or flashing lights, please contact this office.
== END 2019-05-17 12:49 | disposition left against medical advice (07) ==
LOC: UCEAST 12:17
DX: Z53.8 Procedure and treatment not carried out for other reasons (principal)

== ENCOUNTER 2019-05-17 14:01 | Emergency (ER) | payer MEDICARE, BC ==
[2019-05-17 16:27] LABS: ABS Lymphocytes 0.6 10^3/ul (1.0-4.8); ABS Monocytes 0.3 10^3/ul (0-0.8); ABS Neutrophils 5.6 10^3/ul (1.5-7.7); Eosinophil % 0.1 %; Hematocrit 43 % (42-52); Lymphocyte % 8.8 %; Mean Corpuscular HGB Conc 33 g/dL (31-36); Mean Corpuscular Hemoglobin 30 pg (27-31); Mean Corpuscular Volume 93 fL (80-94); Mean Platelet Volume 8.5 fL (7.4-10.4); Nucleated Red Blood Cells % 0.1; Platelet Count 276 10^3/uL (150-450); Red Blood Count 4.59 10^6 /uL (4.18-5.48); Red Cell Distribution Width 14 % (10-15); White Blood Count 6.4 10^3/uL (3.5-10.8)
[2019-05-17 16:49] LABS: Albumin 3.8 g/dL (3.2-5.2); Albumin/Globulin Ratio 1.1 (1-3); BUN/Creatinine Ratio 17.8 (8-20); C Reactive Protein 63.72 mg/L (<8.01); Calcium 9.8 mg/dL (8.6-10.3); EGFR African American 78.7 (>60); EGFR Non-African American 65.1 (>60); Globulin 3.6 g/dL (2-4); Potassium 4.4 mmol/L (3.5-5.0); Total Bilirubin 0.4 mg/dL (0.2-1.0); Total Protein 7.4 g/dL (6.4-8.9)
[2019-05-17] MEDS ORDERED: cefTRIAXone(*) 1 GM in NS 0.9% 50 ML* 50 ML IVPB ONE (17:31)
[2019-05-17] MEDS ORDERED: NS 0.9% 1000 ML** 1,000 ML IV ONE (17:31)
[2019-05-17] MEDS ORDERED: Azithromycin 500 mg/250 ml NS 500 MG/250 ML BAG IVPB ONE (17:31)
--- NOTE | 2019-05-17 17:32 | ED ---
Respiratory - HPI Summary HPI Summary: 88 year [facility] M [facility] complains of cough and pain with cough since 7 days ago. The patient rates the pain 1/10 in severity. Symptoms aggravated by nothing. Symptoms alleviated by nothing. Patient reports night time diaphoresis. Patient denies shortness of breath, fever, weakness. Patient has been taking Levaquin for 7 days for pneumonia 1 week ago for which he is taking Levaquin. Patient was supposed to have follow up appointment with primary care provider today but was referred to the ED for workup and evaluation. - History of Current Complaint Chief Complaint: EDUpperRespComplaint Stated Complaint: POSS PULMONARY EDEMA NEEDS SCAN PER PT Time Seen by Provider: 05/17/19 17:18 Hx Obtained From: Patient Onset/Duration: Lasting Days - 7, Still Present Timing: Constant Current Severity: Mild Pain Intensity: 1 Aggravating Factor(s): Nothing Alleviating Factor(s): Nothing - Allergy/Home Medications Allergies/Adverse Reactions: Allergies Allergy/AdvReac Type Severity Reaction Status Date / Time No Known Allergies Allergy Verified 05/17/19 14:16 Home Medications: Home Medications Apixaban* [Eliquis*] 5 mg PO BID 05/17/19 [History Confirmed 05/17/19] Aspirin EC TAB* [Ecotrin EC Low Dose 81 MG*] 81 mg PO DAILY 05/17/19 [History Confirmed 05/17/19] Atorvastatin* [Lipitor 40 MG*] 40 mg PO DAILY 05/17/19 [History Confirmed ] Losartan Potassium 100 mg PO DAILY 05/17/19 [History Confirmed 05/17/19] Metaxalone TAB* [Skelaxin TAB*] 800 mg PO TID PRN 05/17/19 [History Confirmed ] Omeprazole CAP (NF) [Prilosec CAP* 20 MG] 20 mg PO DAILY 05/17/19 [History Confirmed 05/17/19] amLODIPine TAB* [Norvasc 5 mg TAB*] 2.5 mg PO DAILY 05/17/19 [History Confirmed 05/17/19] PMH/Surg Hx/FS Hx/Imm Hx Endocrine/Hematology History: Reports: Other Endocrine/Hematological Disorders - hyperlipidemia Cardiovascular History: Reports: Hx Coronary Artery Disease, Hx Hypertension GI History: Reports: Hx Irritable Bowel, Other GI Disorders - hernia, nephrolithiasis, IBS Sensory History: Reports: Hx Cataracts, Hx Contacts or Glasses Opthamlomology History: Reports: Hx Cataracts, Hx Contacts or Glasses - Surgical History Surgery Procedure, Year, and Place: appendectomy. bypass surgery December 2000. cataract Infectious Disease History: No Infectious Disease History: Denies: Traveled Outside the [place] in Last 30 Days - Family History Known Family History: Positive: Unknown - patient is adopted - Social History Alcohol Use: Weekly Hx Substance Use: No Substance Use Type: Reports: None Hx Tobacco Use: Yes Smoking Status (MU): Former Smoker Type: Cigarettes Amount Used/How Often: 10/05 PPD Review of Systems Positive: Skin Diaphoresis. Negative: Fever Positive: Cough. Negative: Shortness Of Breath Negative: Weakness All Other Systems Reviewed And Are Negative: Yes Physical Exam - Summary Physical Exam Summary: VITAL SIGNS: Reviewed. GENERAL: Patient is a well-developed and nourished MALE who is lying comfortable in the stretcher. Patient is not in any acute respiratory distress. HEAD AND FACE: No signs of trauma. No ecchymosis, hematomas or skull depressions. No sinus tenderness. EYES: PERRLA, EOMI x 2, No injected conjunctiva, no nystagmus. EARS: Hearing grossly intact. Ear canals and tympanic membranes are within normal limits. MOUTH: Oropharynx within normal limits. NECK: Supple, trachea is midline, no adenopathy, no JVD, no carotid bruit, no c- spine tenderness, neck with full ROM. CHEST: Symmetric, no tenderness at palpation. LUNGS: Ccrackles in left side CVS: Regular rate and rhythm, S1 and S2 present, no murmurs or gallops appreciated. ABDOMEN: Soft, non-tender. No signs of distention. No rebound, no guarding, and no masses palpated. Bowel sounds are normal. EXTREMITIES: FROM in all major joints, no edema, no cyanosis or clubbing. NEURO: Alert and oriented x 3. No acute neurological deficits. Speech is normal and follows commands. SKIN: Dry and warm. Triage Information Reviewed: Yes Vital Signs On Initial Exam: Initial Vitals Temp Pulse Resp BP Pulse Ox 97.4 F 97 16 137/87 96 05/17/19 14:10 05/17/19 14:10 05/17/19 14:10 05/17/19 14:10 05/17/19 14:10 Vital Signs Reviewed: Yes Diagnostics - Vital Signs Vital Signs Temp Pulse Resp BP Pulse Ox 05/17/19 16:10 97.8 F 76 18 130/68 100 05/17/19 14:10 97.4 F 97 16 137/87 96 - Laboratory Lab Results: Lab Results 05/17/19 05/17/19 05/17/19 Range/Units 16:18 16:18 16:18 WBC 6.4 (3.5-10.8) 10^3/uL RBC 4.59 (4.18-5.48) 10^6 /uL Hgb 14.0 (14.0-18.0) g/dL Hct 43 (42-52) % MCV 93 (80-94) fL MCH 30 (27-31) pg MCHC 33 (31-36) g/dL RDW 14 (10-15) % Plt Count 276 (150-450) 10^3/uL MPV 8.5 (7.4-10.4) fL Neut % (Auto) 86.6 % Lymph % (Auto) 8.8 % Howard % (Auto) 4.0 % Eos % (Auto) 0.1 % Baso % (Auto) 0.5 % Absolute Neuts (auto) 5.6 (1.5-7.7) 10^3/ul Absolute Lymphs (auto) 0.6 L (1.0-4.8) 10^3/ul Absolute Monos (auto) 0.3 (0-0.8) 10^3/ul Absolute Eos (auto) 0.0 (0-0.6) 10^3/ul Absolute Basos (auto) 0.0 (0-0.2) 10^3/ul Absolute Nucleated RBC 0.0 10^3/ul Nucleated RBC % 0.1 Sodium 137 (135-145) mmol/L Potassium 4.4 (3.5-5.0) mmol/L Chloride 103 (101-111) mmol/L Carbon Dioxide 27 (22-32) mmol/L Anion Gap 7 (2-11) mmol/L BUN 19 (6-24) mg/dL Creatinine 1.07 (0.67-1.17) mg/dL Est GFR ( Amer) 78.7 (>60) Est GFR (Non-Af Amer) 65.1 (>60) BUN/Creatinine Ratio 17.8 (8-20) Glucose 144 H (70-100) mg/dL Lactic Acid 1.4 (0.5-2.0) mmol/L Calcium 9.8 (8.6-10.3) mg/dL Total Bilirubin 0.40 (0.2-1.0) mg/dL AST 16 (13-39) U/L ALT 17 (7-52) U/L Alkaline Phosphatase 96 (34-104) U/L Troponin I 0.00 (<0.04) ng/mL C-Reactive Protein 63.72 H (<8.01) mg/L B-Natriuretic Peptide (<=100) pg/mL Total Protein 7.4 (6.4-8.9) g/dL Albumin 3.8 (3.2-5.2) g/dL Globulin 3.6 (2-4) g/dL Albumin/Globulin Ratio 1.1 (1-3) // Range/Units 16:18 WBC (3.5-10.8) 10^3/uL RBC (4.18-5.48) 10^6 /uL Hgb (14.0-18.0) g/dL Hct (42-52) % MCV (80-94) fL MCH (27-31) pg MCHC (31-36) g/dL RDW (10-15) % Plt Count (150-450) 10^3/uL MPV (7.4-10.4) fL Neut % (Auto) % Lymph % (Auto) % Howard % (Auto) % Eos % (Auto) % Baso % (Auto) % Absolute Neuts (auto) (1.5-7.7) 10^3/ul Absolute Lymphs (auto) (1.0-4.8) 10^3/ul Absolute Monos (auto) (0-0.8) 10^3/ul Absolute Eos (auto) (0-0.6) 10^3/ul Absolute Basos (auto) (0-0.2) 10^3/ul Absolute Nucleated RBC 10^3/ul Nucleated RBC % Sodium (135-145) mmol/L Potassium (3.5-5.0) mmol/L Chloride (101-111) mmol/L Carbon Dioxide (22-32) mmol/L Anion Gap (2-11) mmol/L BUN (6-24) mg/dL Creatinine (0.67-1.17) mg/dL Est GFR ( Amer) (>60) Est GFR (Non-Af Amer) (>60) BUN/Creatinine Ratio (8-20) Glucose (70-100) mg/dL Lactic Acid (0.5-2.0) mmol/L Calcium (8.6-10.3) mg/dL Total Bilirubin (0.2-1.0) mg/dL AST (13-39) U/L ALT (7-52) U/L Alkaline Phosphatase (34-104) U/L Troponin I (<0.04) ng/mL C-Reactive Protein (<8.01) mg/L B-Natriuretic Peptide 146 H (<=100) pg/mL Total Protein (6.4-8.9) g/dL Albumin (3.2-5.2) g/dL Globulin (2-4) g/dL Albumin/Globulin Ratio (1-3) Result Diagrams: 05/17/19 16:18 05/17/19 16:18 Lab Statement: Any lab studies that have been ordered have been reviewed, and results considered in the medical decision making process. - Radiology Chest x-ray Radiology Interpretation Completed By: Radiologist Summary of Radiographic Findings: 1. LINGULAR CONSOLIDATION. 2. COPD. 3. RECOMMEND FOLLOW-UP UNTIL RESOLUTION TO EXCLUDE UNDERLYING PARENCHYMAL PATHOLOGY. IF THE CLINICAL PRESENTATION IS NOT CONSISTENT WITH INFECTION, CONSIDER FURTHER EVALUATION WITH CONTRAST ENHANCED CT OF THE CHEST. ED physician has reviewed this report. - EKG 1600 Summary of EKG Findings: sinus rhythm [address] elevations. RBBB. Disposition - Course Assessment/Plan: 88 year old M presenting to [facility] complains of cough and pain with cough since 7 days ago. The patient rates the pain 1/10 in severity. Symptoms aggravated by nothing. Symptoms alleviated by nothing. Patient reports night time diaphoresis. Patient denies shortness of breath, fever, weakness. Patient has been taking Levaquin for 7 days for pneumonia 1 week ago for which he is taking Levaquin. Patient was supposed to have a follow up appointment with primary care provider today but was referred to the ED for workup and evaluation. Blood work without any significant abnormality except for glucose of 144 and CRP of 63.7. BNP is 146. CXR IMPRESSION: 1. LINGULAR CONSOLIDATION. 2. COPD.. 3. RECOMMEND FOLLOW-UP UNTIL RESOLUTION TO EXCLUDE UNDERLYING PARENCHYMAL PATHOLOGY. IF. THE CLINICAL PRESENTATION IS NOT CONSISTENT WITH INFECTION, CONSIDER FURTHER EVALUATION WITH CONTRAST ENHANCED CT OF THE CHEST. In the ED course, we sent blood cultures, and the patient was given Rocephin and azithromycin. I discussed my physical exam and findings with Dr. Carter from the hospital services who accepted the patient for admission. Patient was evaluated by Dr. Lacy, hospitalist. Patient was discharged home by Dr. Lacy. - Diagnoses Provider Diagnoses: Pneumonia - Physician Notifications Discussed Care Of Patient With: Sade Carter Time Discussed With Above Provider: 17:34 Instructed by Provider To: Other - Dr. Carter, hospitalist, agrees to admit patient Discharge - Sign-Out/Discharge Documenting (check all that apply): Patient Departure - Discharge Patient Received Moderate/Deep Sedation with Procedure: No - Discharge Plan Condition: Fair Disposition: HOME Prescriptions: guaiFENesin/CODIEN 100MG-10MG* [Robitussin AC 100Mg-10Mg*] 5 ml PO Q4H PRN #150 ml MDD 30ml PRN Reason: Cough Referrals: Coco Hoff MD [Medical Doctor] - (Follow up early next week) Additional Instructions: 1. Activity as tolerated. 2. Return to the ER for worsened chest pain, shortness of breath, fever/chill or any other concerning symptoms. - Billing Disposition and Condition Condition: FAIR Disposition: Home - Attestation Statements Document Initiated by Dex: Yes Documenting Scribe: Susan Cordoba Provider For Whom Dex is Documenting (Include Credential): Layton Abreu MD Scribe Attestation: I, Susan Cordoba, scribed for Layton Abreu MD on 05/17/19 at 1906. Scribe Documentation Reviewed: Yes Provider Attestation: The documentation as recorded by the Susan johnson accurately reflects the service I personally performed and the decisions made by me, Layton Abreu MD Status of Scribe Document: Viewed
[2019-05-17] MEDS ORDERED: Azithromycin TAB* 250 MG ONE (19:16)
[2019-05-17] MEDS ORDERED: Azithromycin TAB* 250 MG PO ONE (19:22)
[2019-05-17 19:32] VITALS: BP 0/0
--- NOTE | 2019-05-17 20:26 | CONS ---
CC: Dr. Hoff; Dr. Cabezas* CONSULTATION REPORT: DATE OF CONSULT: 05/17/19 PRIMARY CARE PROVIDER: Dr. Hoff. COOK ROAST: Dr. Cabezas. CHIEF COMPLAINT: Cough. HISTORY OF PRESENT ILLNESS: Mr. Trinidad Gonzalez is an 88-year-old male who was diagnosed with pneumonia about 8 days ago. He completed a 7-day course of Levaquin yesterday. The patient has continued to have pain in his left ribs and mild intermittent cough. He states that when he is upright throughout the day, he does not bring up any sputum; however, when he lies flat to sleep, he does bring up some sputum. He does lie completely flat at night, but sleeps with his head propped up, though that is not a new issue for him. He denies any fevers or chills. He does state that he has had night sweats over the last several nights. Overall, the patient feels traumatically better than when he was diagnosed with the pneumonia. He also informs that he recently completed radiation therapy for a lung malignancy. PAST MEDICAL HISTORY: 1. Coronary artery disease. 2. Left lung malignancy. 3. Questionable atrial fibrillation. 4. Hyperlipidemia. 5. GERD. PAST SURGICAL HISTORY: 1. CABG. 2. Appendectomy. 3. Hernia repair. 4. Bilateral cataract extractions. MEDICATIONS: 1. Skelaxin 800 mg p.o. t.i.d. p.r.n. spasm. 2. Eliquis 5 mg p.o. b.i.d. 3. Amlodipine 2.5 mg p.o. daily. 4. Omeprazole 20 mg p.o. daily. 5. Losartan 100 mg p.o. daily. 6. Lipitor 40 mg p.o. daily. 7. Aspirin 81 mg p.o. daily. ALLERGIES: No known drug allergies. FAMILY HISTORY: The patient is adopted. SOCIAL HISTORY: The patient smoked in the distant past. He does not smoke any longer. He drinks typically 1 glass of wine with dinner and a half glass of misbah nightly. 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 He was 2 years ago. He has 3 children. His son, Rui, who is a physician is his healthcare proxy. REVIEW OF SYSTEMS: A complete 11-system review of systems is obtained. Pertinent positives and negatives are as per HPI and in addition, the patient does state that his appetite has been poor over the last several days. Otherwise, review of systems is negative. PHYSICAL EXAM: Blood pressure 130/68, pulse 76, respirations 18, temp 97.8, O2 sat 100% on room air. General: The patient is a well-developed, thin, elderly male, seen sitting up in the stretcher, in no acute distress. HEENT: Pupils are equal, round. Extraocular muscles are intact. Oropharynx is clear. Oral mucosa is moist. There is no submandibular, cervical, or supraclavicular adenopathy. Thyroid is not enlarged. No thyroid nodules are noted. Cardiac: Normal S1, S2. Regular rate and rhythm. I do not appreciate any murmurs. Pulmonary: Lungs are clear with minimal bibasilar crackles. Abdomen: Bowel sounds are present. Abdomen is soft, nontender, nondistended. Musculoskeletal: There is no cyanosis or clubbing of the digits. There is full active range of motion of all 4 extremities. Skin is warm and dry. There are no rashes. The patient does appear to have spider veins of the bilateral lower extremities. Neuro: Cranial nerves II through XII are grossly intact. Sensation is intact to light touch throughout. Strength is 5/5 and symmetric in both upper and lower extremities bilaterally. Psych: The patient is alert. He is oriented x3. Affect appears appropriate. DIAGNOSTIC STUDIES/LAB DATA: WBC 6.4, hemoglobin 14.0, hematocrit 43, platelets 276. Sodium 137, potassium 4.4, chloride 103, CO2 27, BUN 19, creatinine 1.07, glucose 144. Lactic acid 1.4. Calcium 9.8. Bilirubin 0.4, AST 16, ALT 17, alk phos 96. Troponin 0. CRP 63.72. BNP 146. Albumin 3.8. Chest x-ray reveals a lingular consolidation and stigmata of COPD. EKG reveals normal sinus rhythm with a prolonged IL interval and wide complex QRS. ASSESSMENT AND PLAN: Mr. Trinidad Gonzalez is an 88-year-old male with a history of coronary artery disease, left-sided lung malignancy and possible atrial fibrillation, who presented to the emergency room with complaints of persistent cough after being treated for pneumonia. Pneumonia. At this point, the patient has completed 7 days of Levaquin therapy. He is stable from a respiratory standpoint and in fact, appears quite well. The patient does continue to have intermittent cough, worse at night. We discussed initiating a cough suppressant. I offered Robitussin A-C, which the patient believes will help his symptoms. He has mild discomfort in the left ribs. At this point, I do not feel nor does the patient feel that he needs to be admitted to the hospital. We have discussed reasons to return to the emergency room, which include worsened pain, shortness of breath, cough, or any other concerning symptoms. He will trial the Robitussin A-C to see if this helps with his symptoms at night. I have recommended that he call his PCP's office on Monday morning and get an appointment for either Monday or Monday for followup. I do not believe the patient needs a CTA of the chest. He is not hypoxic nor is tachycardic. At this point, the patient is going to be discharged home from the emergency room. TIME SPENT: Fifty five minutes was spent on this consultation. [id number] #: [id number] REUBEN
== END 2019-05-17 19:20 | disposition home or self-care (01) ==
LOC: ED 14:01
DX: J18.9 Pneumonia, unspecified organism (principal); R61 Generalized hyperhidrosis; C34.92 Malignant neoplasm of unspecified part of left bronchus or lung; J44.9 Chronic obstructive pulmonary disease, unspecified; E78.5 Hyperlipidemia, unspecified; I10 Essential (primary) hypertension; K21.9 Gastro-esophageal reflux disease without esophagitis; Z79.01 Long term (current) use of anticoagulants; Z79.82 Long term (current) use of aspirin; Z95.1 Presence of aortocoronary bypass graft; Z87.891 Personal history of nicotine dependence
CPT/HCPCS: 36415; 71046; 80053; 83605; 83880; 84484; 85025; 86140; 87040; 93005; 96361; 96365; 99282; A9270-GY; J0456; J0696